=== PATIENT | female | born 1960 | race Caucasian/White ===

== ENCOUNTER 2018-01-23 16:13 | Emergency (ER) | payer OTHER, SELFPAY ==
[2018-01-23 16:14] VITALS: BP 184/80; PULSE 78; RESP 16; TEMP 36.7; O2SAT 98; BMI 43.5
--- NOTE | 2018-01-23 16:32 | ED.VISSUMM ---
- ER Visit Summary Date of Service: 01/23/18 Chief Complaint: Allergic reaction History of Present Illness: The patient is a 57 F who was stung by a bee to the back of her right arm on the . The area is red, warm, and continuing to expand. She took a single dose of Zyrtec last night. Physical Examination: Vital signs significant for blood pressure 184/80, otherwise normal. Patient sitting upright in bed no acute distress. Right upper extremity examination is significant for an area of erythema and warmth measuring 16 x 20 cm of the posterior right upper extremity. She has full range of motion of her arm. I do not see evidence of stinger still located in the skin. Test Results: [] Emergency Department Course and Treatment: My suspicion is the patient has a secondary bacterial skin infection from the sting. Area of erythema is outlined with a surgical marker. She is to continue Zyrtec and will be given a topical corticosteroid cream. She will also be started on Keflex. Treatment Plan: [] Disposition: Discharge Impression: Localized allergic reaction to bee sting with secondary skin infection This note was generated with [employer] dictation software. It may contain incorrect words, spelling, and punctuation that were not noted in review of the chart prior to signing ED Disposition - Plan for ED Patient: Chief Complaint: Allergic Reaction Referrals: Williams Pierson DO [Primary Care Provider] -
--- NOTE | 2018-01-23 16:34 | ED.DEP ---
ED Disposition - Plan for ED Patient: Disposition: Home or Assisted Living Chief Complaint: Allergic Reaction Instructions: ED Bite Sting Insect Local Allergic React, ED Infec Skin Cellulitis Prescriptions: Cephalexin [Keflex] 500 mg PO Q6 #40 capsule Referrals: Williams Pierson DO [Primary Care Provider] - 1 Week if not improving
[2018-01-23] MEDS: Hydrocortisone 2.5% Crm 1 APPLIC TOPICAL (16:40)
[2018-01-23] MEDS: Cephalexin 250 MG Capsule 500 MG PO (16:40)
== END 2018-01-23 16:48 | disposition home or self-care (01) ==
LOC: ED 16:45
PROVIDERS: Emergency Provider Emergency Medicine; Family Provider Preventive Medicine Occupational Medicine; PCP Preventive Medicine Occupational Medicine
DX: T63.441A Toxic effect of venom of bees, accidental (unintentional), initial encounter (principal); R21 Rash and other nonspecific skin eruption; Y92.9 Unspecified place or not applicable; K21.9 Gastro-esophageal reflux disease without esophagitis; I10 Essential (primary) hypertension; Z79.899 Other long term (current) drug therapy
CPT/HCPCS: 99283

== ENCOUNTER → 2018-06-21 15:42 | Outpatient (CLI) | payer OTHER, SELFPAY | PROVIDERS: Family Provider Preventive Medicine Occupational Medicine; PCP Preventive Medicine Occupational Medicine; Referring Provider Otolaryngology Otolaryngology/Facial Plastic Surgery; Visit Provider Otolaryngology Otolaryngology/Facial Plastic Surgery | DX: J32.9 Chronic sinusitis, unspecified (principal) | CPT/HCPCS: 87070; 87205 ==

== ENCOUNTER → 2018-07-05 12:46 | Outpatient (CLI) | payer OTHER, SELFPAY ==
--- NOTE | 2018-07-05 12:52 | CT_ITS ---
STUDY: CT FACIAL BONES WITHOUT CONTRAST REASON FOR EXAM: Female, 57 years old. Sinusitis RADIATION DOSAGE (If Supplied By Facility): CTDIvol = ( 33.06 ) mGy, DLP = ( 856.74 ) mGycm TECHNIQUE: The patient was scanned in a multi detector CT scanner. Sagittal and coronal images were reconstructed. Individualized dose optimization techniques were used for this CT. COMPARISON: None. FINDINGS: No evidence of acute or chronic paranasal sinusitis. The right frontal sinus is nonpneumatized. The ostiomeatal complexes are normal. No misti bullosa. No nasal septal deviation. No acute osseous abnormality. Visualized soft tissues are intact. CT/Sinus/Facial Bone IMPRESSION: No evidence of acute or chronic paranasal sinusitis. Electronically Signed: Dae Reno MD at 8:19 EDT Tel , Service support ,
== END ==
PROVIDERS: Family Provider Preventive Medicine Occupational Medicine; PCP Preventive Medicine Occupational Medicine; Referring Provider Otolaryngology Otolaryngology/Facial Plastic Surgery; Visit Provider Otolaryngology Otolaryngology/Facial Plastic Surgery
DX: J32.9 Chronic sinusitis, unspecified (principal)
CPT/HCPCS: 70486

== ENCOUNTER 2020-10-01 18:49 | Inpatient (IN) | payer OTHER, SELFPAY ==
[2020-09-27 10:51] VITALS: BMI 43.0
[2020-10-01] VITALS (7 sets, daily range): BP systolic 152–193; BP diastolic 72–100; PULSE 79–89; RESP 17–22; TEMP 36.8–38.3; O2SAT 85–94; BMI 41.9; BMI 42.8
--- NOTE | 2020-10-01 19:39 | EKG12_ITS ---
Test Reason : N/V Blood Pressure : / mmHG Vent. Rate : 082 BPM Atrial Rate : 082 BPM P-R Int : 194 ms QRS Dur : 078 ms QT Int : 350 ms P-R-T Axes : 024 -41 033 degrees QTc Int : 408 ms Normal sinus rhythm Left axis deviation Moderate voltage criteria for LVH, may be normal variant Abnormal ECG Confirmed by GEN SNYDER, HUMBERTO ([id number]), editor greeting card AZUCENA KIM ([id number]) on 10/04/2020 8:26:17 AM Referred By: DALY Confirmed By:HUMBERTO BLEVINS MD
--- NOTE | 2020-10-01 19:40 | RAD_ITS ---
STUDY: X-RAY CHEST REASON FOR EXAM: Female, 60 years old. covid TECHNIQUE: Single frontal view of the chest. COMPARISON: None. FINDINGS: Cardiac silhouette unremarkable. Pulmonary vascularity unremarkable. Aorta unremarkable. Right suprahilar opacity and prominent interstitial markings diffusely. No pleural effusions. Upper abdomen unremarkable. Osseous structures intact. No pneumothorax. RAD/Chest 1 View (Portable) IMPRESSION: Multifocal opacities may be consistent with Covid pneumonia. Electronically Signed: Luis Felipe Huitron MD at 21:05 EDT Tel , Service support ,
[2020-10-01] MEDS: Ondansetron 4 MG/2 ML Vial IV (19:50)
[2020-10-01] MEDS: 0.9% Normal Saline 1,000 ML 1000 ML IV (19:50)
--- NOTE | 2020-10-01 19:59 | EDS_ITS ---
HPI History of Present Illness Chief Complaint: Nausea/Vomiting Informant: patient and spouse/S.O. Narrative Narrative: 60-year-old female presents out of concerns for dehydration. Patient tested positive for COVID-19 last Wednesday and her symptoms began on last Wed. States her father recently passed from Covid from a pulmonary embolism. She notes that she has been experiencing some sore throat rhinorrhea cough mild shortness of breath loose stools and headache. She notes a fever up to 104. She states she has been taking more than what she is used to of Tylenol and anti-inflammatories. This is caused her stomach to be upset. She states that she is panicking because she is worried she is going to of a blood clot like her father. [facility] Medical History Hypertension Home Medications Cetirizine Hcl [Zyrtec] 10 mg PO PRN PRN 04/30/15 [History Last Taken Unknown] ascorbic acid (vitamin C) [Vitamin C] 500 mg PO DAILY 04/30/15 [History Last Taken Unknown] calcium carbonate-vitamin D3 [Caltrate with Vitamin D3] 1 tab PO DAILY@0800 04/30/15 [History Last Taken Unknown] esomeprazole magnesium [Nexium] 40 mg PO DAILY 04/30/15 [History Last Taken 05/13/15 08:00] multivitamin [Daily Multiple] 1 ea PO DAILY 04/30/15 [History Last Taken Unknown] vitamin B complex-folic acid [Super B Maxi Complex] 0.4 mg PO DAILY 04/30/15 [History Last Taken Unknown] ascorbic acid 100 mg-elderberry fruit 50 mg chewable tablet tab PO 09/27/20 [History Last Taken Unknown] calcium carb 300 mg-D3 800 unit-mag ox 25 mg-messenger copy 0.5 mg-edelmira-Zn tablet 1 tab PO DAILY 09/27/20 [History Last Taken Unknown] citalopram 10 mg tablet 10 mg PO DAILY 09/27/20 [History Last Taken Unknown] losartan 25 mg tablet 25 mg PO DAILY 09/27/20 [History Last Taken Unknown] elderberry fruit [Elderberry] 200 mg PO DAILY 10/01/20 [History Last Taken Unknown] Allergy/AdvReac Type Severity Reaction Status Date / Time hydromorphone [From Dilaudid] AdvReac Vomiting Verified 10/01/20 18:55 Social History (Updated 10/01/20 @ 20:[address] Arian Lara, DO) Smoking Status: Never smoker substance use type: does not use ROS ROS ED Constitutional Constitutional ED: Reports chills, fever(s) and sweats; Denies weight loss Eyes Eyes: Denies change in vision or diplopia ENT ENT ED: Reports rhinorrhea and sore throat; Denies ear pain Cardiovascular Cardiovascular: Denies chest pain, orthopnea, palpitations or racing heartbeat Respiratory/Chest Respiratory/Chest: Reports cough, dyspnea and dyspnea on exertion; Denies orthopnea or sputum Gastrointestinal Gastrointestinal: Reports nausea and vomiting; Denies abdominal pain or diarrhea Genitourinary Genitourinary ED: Denies dysuria, hematuria or urinary frequency Musculoskeletal Musculoskeletal: Reports myalgias; Denies arthralgias Integumentary Denies abscess or rash Neurologic Neurologic: Reports headache(s) and weakness Psychiatric Psychiatric: Reports anxiety; Denies depression, suicidal ideation or suicidal thoughts Endocrine Endocrinology: Denies polydipsia, polyphagia or polyuria Allergic/Immunologic Allergic/Immunologic ED: Denies mouth swelling, tongue swelling or urticaria EXAM Physical Exam Const Vital Signs: 10/01/20 18:50 10/01/20 20:28 10/01/20 22:00 Temperature 98.3 F Temperature Source Temporal Pulse Rate 89 81 87 Respiratory Rate 17 18 17 Blood Pressure 193/100 H 159/72 H 152/72 H Blood Pressure Mean 131 101 98 Pulse Ox 93 90 91 Oxygen Delivery Method Room Air Room Air Room Air Positive well nourished and well developed General Appearance ED: well developed HEENT Reports normocephalic, head/scalp atraumatic and moist mucous membranes Eyes PERRL and EOMs intact bilaterally Neck no lymphadenopathy, supple and no JVD Resp normal respiratory effort and clear to auscultation bilaterally Cardio regular rate, regular rhythm and no murmurs GI normal to inspection, nondistended, normoactive bowel sounds and non-tender Palpation: soft Back/Spine no CVA tenderness and normal ROM Extremity normal to inspection General Extremety ED: Negative for edema General Extremity: Negative for edema Neuro oriented x3 and CN's II-XII intact bilaterally Sensorium / Orientation: alert Motor Exam: strength 5/5 throughout Psych Mood & Affect: anxious and tearful; Negative for depressed Skin no rashes or lesions noted and no wounds MDM MDM MDM Narrative Medical decision making narrative: White count 6.8. D-dimer slightly elevated so a CTA of the chest was ordered which does not demonstrate any pulmonary embolism. Noted multifocal patchy infiltrates consistent with her diagnosis of Covid. There was right upper lobe consolidation read by radiology. Interpretation of the chest x-ray is Diffuse patchy infiltrates. Upon the patient resting in the emergency department while awake she would occasionally drop her saturations to 86% with good waveform. With ambulation she drops from 91-85 readily. She was placed on supplemental oxygen and given a dose of Decadron. Plan will be admission into the hospital. Lab Data Attestation: I reviewed the patient's lab results. Labs: Laboratory Results - last 24 hr 10/01/20 10/01/20 10/01/20 19:55 19:55 19:55 WBC 6.8 RBC 4.72 Hgb 13.7 Hct 41.4 MCV 87.7 MCH 29.0 MCHC 33.1 RDW Std Deviation 42.9 RDW Coeff of Saida 13.2 Plt Count 160 MPV 11.4 Immature Gran % (Auto) 0.300 Neut % (Auto) 78.3 H Lymph % (Auto) 14.9 L [place] % (Auto) 6.2 Eos % (Auto) 0.0 Baso % (Auto) 0.3 Absolute Neuts (auto) 5.3 Absolute Lymphs (auto) 1.01 Nucleated RBC % 0 D-Dimer Quant (PE/DVT) 0.79 H* Sodium 135 L Potassium 4.0 Chloride 102 Carbon Dioxide 29.0 Anion Gap 4 L BUN 15 Creatinine 0.96 Estim Creat Clear Calc 58.34 Est GFR (MDRD) Af Amer 77 Est GFR (MDRD) Non-Af 63 BUN/Creatinine Ratio 15.7 Glucose 114 H Calcium 8.4 L Total Bilirubin 0.30 AST 34 ALT 39 Alkaline Phosphatase 79 Troponin I < 0.015 Total Protein 7.1 Albumin 3.1 L Globulin 4.0 Albumin/Globulin Ratio 0.8 L Radiography Diagnostic Testing: Radiology Impression Chest X-Ray 10/01/20 19:40 IMPRESSION: Multifocal opacities may be consistent with Covid pneumonia. Electronically Signed: Luis Felipe Huitron MD at 21:05 EDT Tel , Service support , Chest CTA 10/01/20 20:49 IMPRESSION: No demonstrated pulmonary embolism or arterial dissection. Patchy infiltrates bilaterally. Right upper lobe consolidation. Electronically Signed: Tank Gallagher DO at 22:27 EDT Tel [phone], Service support , EKG Initial EKG: Attestation: I personally reviewed and interpreted this EKG as follows: Comments: EKG demonstrates a normal sinus rhythm at a rate of 82. No concerning features of ACS or ectopy noted. Prior EKG tracings: available for review Prior: Unchanged Discharge Plan Triage Chief Complaint: Nausea/Vomiting ED Provider: Arian Lara Dx/Rx/DC Orders Clinical Impression: COVID-19, Hypoxemia, Anxiety Prescriptions: No Action losartan 25 mg tablet 25 mg PO DAILY RF: 0 citalopram 10 mg tablet 10 mg PO DAILY RF: 0 Caltrate + D3 Plus Minerals 300 mg-800 unit -25 mg-0.5 mg tablet 1 tab PO DAILY RF: 0 ascorbic acid-elderberry fruit [Airborne (elderberry)] 100-50 mg tablet,chewable PO RF: 0 esomeprazole magnesium [Nexium] 20 MG capsule 40 mg PO DAILY RF: 0 Cetirizine Hcl [Zyrtec] 10 MG tablet 10 mg PO PRN PRN (Reason: Allergies) RF: 0 multivitamin [Daily Multiple] 1 EACH tablet 1 ea PO DAILY RF: 0 ascorbic acid (vitamin C) [Vitamin C] 500 MG tablet 500 mg PO DAILY RF: 0 vitamin B complex-folic acid [Super B Maxi Complex] 0.4 MG tablet 0.4 mg PO DAILY RF: 0 calcium carbonate-vitamin D3 [Caltrate with Vitamin D3] 1 TAB tablet 1 tab PO DAILY@0800 RF: 0 Elderberry 200 mg Capsule 200 mg PO DAILY RF: 0 Primary Care Provider: Williams Pierson Referrals: Williams Pierson DO [Primary Care Provider] - Disposition Disposition: Acute Care [facility]
[2020-10-01 20:05] LABS: Absolute Lymphocyte Count 1.01 X10^3/uL (0.83-4.51); Absolute Neutrophil Count 5.3 X10^3/uL (2.0-7.7); Basophil# 0.02 X10^3/uL; Basophil% 0.3 % (0-1); Hematocrit 41.4 % (37-47); Hemoglobin 13.7 g/dL (12.0-15.0); Lymphocyte # 1.01 X10^3/ul (0.83-4.51); Lymphocyte % 14.9 % (19-41); Mean Corp Hgb Conc 33.1 g/dL (32-36); Mean Corpuscular Volume 87.7 fL (81-99); Mean Platelet Vol. 11.4 fl (6.2-12.0); Monocyte# 0.42 X10^3/uL; Monocyte% 6.2 % (0-10); NRBC Flagged by Analyzer 0 % (0-5); Neutrophil % 78.3 % (47-70); Platelet Count 160 K/mm3 (150-450); RBC Distribution Width CV 13.2 % (11.6-14.6); RBC Distribution Width SD 42.9 fl (35.1-43.9); Red Blood Count 4.72 M/mm3 (4.2-5.4); White Blood Count 6.8 K/mm3 (4.4-11.0)
[2020-10-01 20:26] LABS: ALB/GLOB Ratio 0.8 RATIO (0.9-2.4); AST(SGOT) 34 U/L (15-37); Alanine Aminotransfer ALT/SGPT 39 U/L (13-56); Albumin, Serum 3.1 g/dL (3.2-5.0); Alkaline Phosphatase 79 U/L (45-117); Anion Gap 4 (5-15); BUN 15 mg/dL (7-18); BUN/Creat Ratio 15.7 RATIO (10-20); Calcium,Total 8.4 mg/dL (8.5-10.1); Chloride 102 mmol/L (98-107); Creatinine, Serum 0.96 mg/dL (0.55-1.02); EST Glomerular Filtration Rate 63 mL/min (>60); Est Glom Filt Rate - Afr Amer 77 mL/min (>60); Estimated Creatinine Clearance 58.34 ml/min; Glucose 114 mg/dL (74-106); Protein, Total 7.1 g/dL (6.4-8.2); Sodium Level 135 mmol/L (136-145)
[2020-10-01] MEDS: LORazepam 2 MG/ML Syringe 1 MG IV (20:27)
[2020-10-01 20:28] LABS: D-Dimer Quantitative (DVT/PE) 0.79 FEU/ug/m (0.27-0.49)
--- NOTE | 2020-10-01 20:49 | CT_ITS ---
STUDY: CTA CHEST REASON FOR EXAM: Female, 60 years old. Pulmonary embolism RADIATION DOSAGE (If Supplied By Facility): CTDIvol = ( 11.47 ) mGy, DLP = ( 565.97 ) mGycm TECHNIQUE: The examination was performed with the intravenous administration of IV 100mL [id number]-[id number]. Post-processing of the angiographic images was performed, with multiplanar reformation and 3D reconstruction. Individualized dose optimization techniques were used for this CT. COMPARISON: None. FINDINGS: Normal enhancement of the main pulmonary artery and right and left pulmonary arteries. Normal enhancement of the bilateral peripheral pulmonary arteries. There is no demonstrated pulmonary embolism. Normal thoracic aorta and visualized great vessels. There is no demonstrated aortic dissection. Normal heart and pericardium. Normal mediastinum. Normal hilar regions. Normal visualized trachea and bronchi. The lungs are well expanded. Patchy infiltrates bilaterally. Right upper lobe consolidation. Normal pleura. Normal chest wall structures. Degenerative vertebral changes. Cholelithiasis. CT/CTA Chest W/WO Contrast IMPRESSION: No demonstrated pulmonary embolism or arterial dissection. Patchy infiltrates bilaterally. Right upper lobe consolidation. Electronically Signed: Tank Gallagher DO at 22:27 EDT Tel [phone], Service support ,
--- NOTE | 2020-10-01 22:32 | ED.RN ---
pt po on [id number] and wqalked the room several times drop to 85%. aware. 02 at 2lnc appilied
[2020-10-01] MEDS: dexAMETHasone 4 MG Tablet 6 MG PO (22:46)
--- NOTE | 2020-10-01 23:18 | PCM.HP.STD ---
Documented by User: Bridgette Benson NP-C 10/01/20 23:42 HPI - General General Date of Admission: 10/01/20 HPI Narrative YULISSA AUSTIN, is a 60 F who presents with worsening Covid symptoms. Patient states that she began to be symptomatic last Wednesday and was tested last Wednesday where she was positive for Covid. Patient reports fever of 104, sore throat, rhinorrhea, cough, mild shortness of breath, loose stools and headache. Patient states that she has been nauseous as well she feels due to the amount of Tylenol and anti-inflammatory she has been taking for her fever. Patient is extremely anxious and panicked due to the recent passing of her father from a pulmonary embolism as a result of COVID-19. Patient was offered and denied need for anxiety medication or sedative. [facility] Medical History Hypertension Home Medications Cetirizine Hcl [Zyrtec] 10 mg PO PRN PRN 04/30/15 [History Last Taken Unknown] ascorbic acid (vitamin C) [Vitamin C] 500 mg PO DAILY 04/30/15 [History Last Taken Unknown] calcium carbonate-vitamin D3 [Caltrate with Vitamin D3] 1 tab PO DAILY@0800 04/30/15 [History Last Taken Unknown] esomeprazole magnesium [Nexium] 40 mg PO DAILY 04/30/15 [History Last Taken 05/13/15 08:00] multivitamin [Daily Multiple] 1 ea PO DAILY 04/30/15 [History Last Taken Unknown] vitamin B complex-folic acid [Super B Maxi Complex] 0.4 mg PO DAILY 04/30/15 [History Last Taken Unknown] ascorbic acid 100 mg-elderberry fruit 50 mg chewable tablet tab PO 09/27/20 [History Last Taken Unknown] calcium carb 300 mg-D3 800 unit-mag ox 25 mg-endoscopy registered nurse 0.5 mg-edelmira-Zn tablet 1 tab PO DAILY 09/27/20 [History Last Taken Unknown] citalopram 10 mg tablet 10 mg PO DAILY 09/27/20 [History Last Taken Unknown] losartan 25 mg tablet 25 mg PO DAILY 09/27/20 [History Last Taken Unknown] elderberry fruit [Elderberry] 200 mg PO DAILY 10/01/20 [History Last Taken Unknown] Allergy/AdvReac Type Severity Reaction Status Date / Time hydromorphone [From Dilaudid] AdvReac Vomiting Verified 10/01/20 18:55 Social History Smoking Status: Never smoker substance use type: does not use ROS Constitutional Constitutional: Reports chills, fatigue, fever(s) and headache(s); Denies anorexia ENT HEENT: Reports rhinorrhea and sore throat Cardiovascular Cardiovascular: Denies chest pain, edema or palpitations Respiratory/Chest Respiratory/Chest: Reports cough, shortness of breath at rest and shortness of breath with exertion Gastrointestinal Gastrointestinal: Reports diarrhea, nausea and vomiting; Denies abdominal pain or constipation Genitourinary Genitourinary: Denies dysuria Musculoskeletal Musculoskeletal: Reports joint stiffness; Denies back pain, extremity pain or joint pain Integumentary Integumentary: Denies dry skin, lesions, pruritus, rash or wounds Neurologic Neurologic: Denies abnormal gait, abnormal speech, confusion or dizziness Psychiatric Psychiatric: Reports anxiety; Denies depression Endocrine Endocrinology: Denies change in body appearance Hematologic/Lymphatic Hematologic/Lymphatic: Denies easy bleeding or easy bruising Vital Signs Vital Signs Vital Signs: 10/01/20 18:50 10/01/20 20:28 10/01/20 22:00 Temperature 98.3 F Temperature Source Temporal Pulse Rate 89 81 87 Respiratory Rate 17 18 17 Blood Pressure 193/100 H 159/72 H 152/72 H Blood Pressure Mean 131 101 98 Pulse Ox 93 90 91 Oxygen Delivery Method Room Air Room Air Room Air Oxygen Flow Rate (L/min) 10/01/20 22:32 10/01/20 22:49 10/01/20 22:54 Temperature 98.4 F Temperature Source Temporal Pulse Rate 83 88 Respiratory Rate 21 H 22 H Blood Pressure 167/72 H 161/81 H Blood Pressure Mean 103 107 Pulse Ox 85 94 94 Oxygen Delivery Method Room Air Nasal Cannula Nasal Cannula Oxygen Flow Rate (L/min) 2 2 Weight Weight: 260 lb Body Mass Index (BMI) 41.9 Physical Exam Const alert and oriented x3 General Appearance: cooperative HEENT normocephalic and head/scalp atraumatic Eyes PERRL and EOMs intact bilaterally Neck supple, no JVD and thyroid normal General: trachea midline Lymph Lymphatic: no lymphadenopathy noted Resp normal respiratory effort Effort and Inspection: able to speak in complete sentences and tachypneic Auscultation: diminished lung sounds diffuse Cardio regular rate, regular rhythm, S1 normal heart sound and S2 normal heart sound GI normal to inspection, nondistended, normoactive bowel sounds, soft to palpation and non-tender Extremity normal capillary refill and no clubbing, cyanosis or edema General Extremity: no tenderness to palpation of joints or extremities Skin General Skin Exam: no breakdown and turgor normal Lesions: no lesions Rashes: no rashes Neuro CN's II-XII intact bilaterally Psych mental status grossly normal and cooperative Mood & Affect: anxious Results Lab / Micro Data Result Diagrams: 10/01/20 19:55 10/01/20 19:55 Labs: Laboratory Results - last 24 hr 10/01/20 10/01/20 10/01/20 19:55 19:55 19:55 WBC 6.8 RBC 4.72 Hgb 13.7 Hct 41.4 MCV 87.7 MCH 29.0 MCHC 33.1 RDW Std Deviation 42.9 RDW Coeff of Saida 13.2 Plt Count 160 MPV 11.4 Immature Gran % (Auto) 0.300 Neut % (Auto) 78.3 H Lymph % (Auto) 14.9 L [place] % (Auto) 6.2 Eos % (Auto) 0.0 Baso % (Auto) 0.3 Absolute Neuts (auto) 5.3 Absolute Lymphs (auto) 1.01 Nucleated RBC % 0 D-Dimer Quant (PE/DVT) 0.79 H* Sodium 135 L Potassium 4.0 Chloride 102 Carbon Dioxide 29.0 Anion Gap 4 L BUN 15 Creatinine 0.96 Estim Creat Clear Calc 58.34 Est GFR (MDRD) Af Amer 77 Est GFR (MDRD) Non-Af 63 BUN/Creatinine Ratio 15.7 Glucose 114 H Calcium 8.4 L Total Bilirubin 0.30 AST 34 ALT 39 Alkaline Phosphatase 79 Troponin I < 0.015 Total Protein 7.1 Albumin 3.1 L Globulin 4.0 Albumin/Globulin Ratio 0.8 L Radiology Impression Chest X-Ray 10/01/20 19:40 IMPRESSION: Multifocal opacities may be consistent with Covid pneumonia. Electronically Signed: Luis Felipe Huitron MD at 21:05 EDT Tel , Service support , Chest CTA 10/01/20 20:49 IMPRESSION: No demonstrated pulmonary embolism or arterial dissection. Patchy infiltrates bilaterally. Right upper lobe consolidation. Electronically Signed: Tank Gallagher DO at 22:27 EDT Tel [phone], Service support , Assessment & Plan Assessment/Plan (1) Pneumonia due to COVID-19 virus: (2) Hypoxemia: (3) Anxiety: PLAN: 1. Pneumonia due to COVID-19 virus -Admit to COVID-19 cohort unit, [facility] telemetry status -Covid isolation precautions ordered -Oxygen per protocol -Will initiate Remdesivir due to resting pulse ox 86%, -Became symptomatic September 25, tested positive at now clinic September 27 -As needed albuterol treatments ordered -Decadron 6 mg p.o. daily -CBC and CMP daily, trend LFTs while on remdesivir -Encourage incentive spirometry -Clear liquid diet due to GI upset -PT and OT to eval and treat 2. Hypoxemia -See #1 3. Anxiety -Increase due to father's recent passing from complications of COVID-19 -Patient refusing any sedation medications or additional anxiety medications at this time however patient did agree to melatonin to help her sleep -Melatonin 6 mg nightly ordered -We will continue citalopram 4. Hypertension -Vital signs per protocol trend BP and heart rate -Patient slightly hypertensive in ER however I believe this is mostly related to her anxiety 5. GERD -Continue omeprazole DVT prophylaxis-subcu Lovenox and SCDs This patient was seen by Bridgette Benson, PULL WORKER-C under the supervision of Dr. Esposito. Documented by User: Dr. Torey Esposito MD 10/01/20 23:47 HPI - General General Date of Admission: 10/01/20 [facility] Medical History Hypertension Home Medications Cetirizine Hcl [Zyrtec] 10 mg PO PRN PRN 04/30/15 [History Last Taken Unknown] ascorbic acid (vitamin C) [Vitamin C] 500 mg PO DAILY 04/30/15 [History Last Taken Unknown] calcium carbonate-vitamin D3 [Caltrate with Vitamin D3] 1 tab PO DAILY@0800 04/30/15 [History Last Taken Unknown] esomeprazole magnesium [Nexium] 40 mg PO DAILY 04/30/15 [History Last Taken 05/13/15 08:00] multivitamin [Daily Multiple] 1 ea PO DAILY 04/30/15 [History Last Taken Unknown] vitamin B complex-folic acid [Super B Maxi Complex] 0.4 mg PO DAILY 04/30/15 [History Last Taken Unknown] ascorbic acid 100 mg-elderberry fruit 50 mg chewable tablet tab PO 09/27/20 [History Last Taken Unknown] calcium carb 300 mg-D3 800 unit-mag ox 25 mg-endoscopy registered nurse 0.5 mg-edelmira-Zn tablet 1 tab PO DAILY 09/27/20 [History Last Taken Unknown] citalopram 10 mg tablet 10 mg PO DAILY 09/27/20 [History Last Taken Unknown] losartan 25 mg tablet 25 mg PO DAILY 09/27/20 [History Last Taken Unknown] elderberry fruit [Elderberry] 200 mg PO DAILY 10/01/20 [History Last Taken Unknown] Allergy/AdvReac Type Severity Reaction Status Date / Time hydromorphone [From Dilaudid] AdvReac Vomiting Verified 10/01/20 18:55 Social History Smoking Status: Never smoker substance use type: does not use Results Lab / Micro Data Result Diagrams: 10/01/20 19:55 10/01/20 19:55 Charges/Coding Addendum Addendum: Patient was seen and examined independently. I agree with assessment and plan by Bridgette Benson NP-C Patient is a 60-year-old female with a significant history of hypertension who presents to the emergency department with anxiety secondary to his father dying from a COVID-19 virus. Of note patient's father was at our hospital for COVID-19. He (patient's father) developed a DVT and PE and had to be transferred to outside hospital where he passed. Patient reports a Covid-like symptoms of sore throat; runny nose; cough occasionally productive of sputum; and shortness of breath. His symptoms started about a week ago. About 5 days ago he had a positive Covid test at the urgent care. On this presentation at the emergency department his oxygen saturation on room air was about 91% and with ambulation his oxygen saturation dropped to about 85%. Alert and oriented x3 Nontraumatic; normocephalic Lung with mild rales at left posterior Heart sounds S1-S2. No murmur, gallop or rubs. Abdomen bowel sounds present soft, nontender nondistended Extremity without edema cyanosis or clubbing. Acute hypoxemic respiratory insufficiency secondary to SARS- COV 2 Radiologist impression of chest x-ray: Multifocal opacity may be consistent with Covid pneumonia. Actual chest x-ray image was independently interpreted. I agree with radiologist interpretation. CTA chest showed no demonstrated pulmonary embolism or atrial dissection. Patchy infiltrates bilaterally. Right upper lobe consolidation. Will get procalcitonin to stratify for need for antibiotics. Please nasal cannula oxygen. Titrate oxygen to keep oxygen saturation more than 92%. Review of outpatient labs showed that patient had a positive Covid test on 09/27/2020. Review of emergency department labs showed GFR of more than 60 and estimated creatinine clearance of 58.34. Liver enzymes are normal. Started on remdesivir. Trend CMP. Tylenol as needed for fever. Covid induced coagulopathy. Noted to have elevated D-dimer. Lovenox for DVT prophylaxis ordered. Depression/anxiety Citalopram continued Counseled Melatonin for sleep. Hypertension Blood pressure is not within goal Losartan continued. Trend blood pressure and adjust blood pressure medications. DVT prophylaxis Subcutaneous Lovenox per Covid protocol Visit Charges Inpatient E&M: 59215 Init Hosp L3
[2020-10-02] VITALS (12 sets, daily range): BP systolic 132–147; BP diastolic 46–64; PULSE 62–76; RESP 13–19; TEMP 36.4–36.8; O2SAT 92–96
[2020-10-02] MEDS: 0.9% Saline Lock 10 ML Syringe IV ×3 (00:11→21:49)
[2020-10-02 00:24] LABS: Procalcitonin 0.21 ng/mL (0.00-0.09)
[2020-10-02 04:25] LABS: Absolute Lymphocyte Count 0.82 X10^3/uL (0.83-4.51); Absolute Neutrophil Count 4.4 X10^3/uL (2.0-7.7); Basophil# 0.01 X10^3/uL; Basophil% 0.2 % (0-1); Hematocrit 40.2 % (37-47); Hemoglobin 13.2 g/dL (12.0-15.0); Lymphocyte # 0.82 X10^3/ul (0.83-4.51); Lymphocyte % 15.1 % (19-41); Mean Corp Hgb Conc 32.8 g/dL (32-36); Mean Corpuscular Hgb 29.1 pg (27.0-32.0); Mean Corpuscular Volume 88.5 fL (81-99); Mean Platelet Vol. 11.1 fl (6.2-12.0); Monocyte# 0.15 X10^3/uL; Monocyte% 2.8 % (0-10); NRBC Flagged by Analyzer 0 % (0-5); Neutrophil # 4.42 X10^3/uL (2.7-7.7); Neutrophil % 81.5 % (47-70); Platelet Count 154 K/mm3 (150-450); RBC Distribution Width CV 13.5 % (11.6-14.6); RBC Distribution Width SD 43.9 fl (35.1-43.9); Red Blood Count 4.54 M/mm3 (4.2-5.4); White Blood Count 5.4 K/mm3 (4.4-11.0)
[2020-10-02 04:43] LABS: ALB/GLOB Ratio 0.7 RATIO (0.9-2.4); AST(SGOT) 36 U/L (15-37); Alanine Aminotransfer ALT/SGPT 39 U/L (13-56); Albumin, Serum 2.9 g/dL (3.2-5.0); Alkaline Phosphatase 77 U/L (45-117); Anion Gap 8 (5-15); BUN 13 mg/dL (7-18); BUN/Creat Ratio 13.7 RATIO (10-20); Chloride 103 mmol/L (98-107); Creatinine, Serum 0.95 mg/dL (0.55-1.02); EST Glomerular Filtration Rate 64 mL/min (>60); Est Glom Filt Rate - Afr Amer 77 mL/min (>60); Estimated Creatinine Clearance 58.95 ml/min; Globulin 4.2 g/dL (2.2-4.2); Glucose 147 mg/dL (74-106); Protein, Total 7.1 g/dL (6.4-8.2); Sodium Level 138 mmol/L (136-145)
[2020-10-02] MEDS: Ascorbic Acid 500 MG Tablet PO (08:24)
[2020-10-02] MEDS: Citalopram 10 MG Tablet PO (08:24)
[2020-10-02] MEDS: Pantoprazole Sodium 40 MG Tablet PO (08:24)
[2020-10-02] MEDS: Calcium Carb/Vitamin D 1 TABLET Tablet PO (08:24)
[2020-10-02] MEDS: Vitamin B Comp W-C Capsule 1 CAP PO (08:24)
[2020-10-02] MEDS: dexAMETHasone 4 MG Tablet 6 MG PO (08:25)
[2020-10-02] MEDS: Losartan Potassium 25 MG Tablet PO (08:25)
[2020-10-02] MEDS: Enoxaparin 40 MG/0.4 ML Syringe SC ×2 (08:25→21:49)
[2020-10-02] MEDS: Multivitamins,Therapeutic Tablet 1 TABLET PO (08:25)
--- NOTE | 2020-10-02 09:05 | CASEMGMT ---
PABLITO LOPEZ Assessment: Face to Face with pt for initial transition planning/care coordination assessment. PABLITO LOPEZ introduced self and role at [facility], pt voices understanding and consents to assessment. Pt is A/O x4 and answers all questions appropriately at this time. Pt lying in bed with O2 on in no distress. Care providers, pharmacy, and demographics verified/updated. Admitting Dx: COVID 19 PNA PCP: [facility] Specialists: Pt denies having any specialists. Preferred Pharmacy: [facility] Insurance: [employer] Prescription Benefit: yes LW/HPOA: Pt denies having LW/DPOA. She states she was working on this when all of this hit. LNO[place]: [place], Living Arrangements: Pt lives with in a single story house with no steps to enter. Pt is independent in ADL's and denies concerns at home. Transportation: Pt drives self and denies concerns with transportation. DME/HHC/SNF: Pt has grab bars in her bathroom, but no other DME. Pt denies history of SNF or HHC. Discussed with patient the possibility of needing O2 at home. Patient was provided a list of HHC providers including quality and resource use data and consistent with the patient?s preferred geographic region, medical needs, and insurance network. The patient?s preferred provider is [facility]. Patient states she does have someone who can bring her groceries during her quarantine period. She states she is able to quarantine. Her and multiple members of her family have had COVID. Recently her father passed from complications of COVID. Pt states no concerns with going home at time of dc. Pt states no further concerns/needs. CM to follow. Advised pt to ask CM if any further question/concerns/needs arise, voices understanding. Pt Goal: Home Plan: Home, following O2 needs.
--- NOTE | 2020-10-02 11:26 | CASEMGMT ---
SW called pt in room to check in w/her, as she recently lost her father. Support offered. Pt states is doing okay right now. SW explained SW here and available to talk with her should she need support. Pt states understanding. SAMANTA Arguello
--- NOTE | 2020-10-02 12:18 | PCM.PN.HOSP ---
Subjective Subjective Feels little bit better today, breathing little bit easier. Her IV did manage to fall out on its own during her remdesivir infusion Objective Data Objective Data Vital Signs: Vital Signs Temp Pulse Resp BP Pulse Ox 97.5 F L 63 17 136/62 H 96 10/02/20 08:34 10/02/20 08:34 10/02/20 08:34 10/02/20 08:34 10/02/20 08:34 Oxygen Flow Rate (L/min) 2 Oxygen Delivery Method Nasal Cannula Weight: 265 lb 6.985 oz Body Mass Index (BMI) 42.8 Intake & Output: Intake and Output for Last 24 Hours 10/01/20 10/02/20 10/03/20 03:59 03:59 03:59 Intake Total 1300 / 1300 431 / 431 Balance 1300 / 1300 431 / 431 Lab / Micro Data Result Diagrams: 10/02/20 04:10 10/02/20 04:10 Labs: Laboratory Results - last 24 hr 10/01/20 10/01/20 10/01/20 19:55 19:55 19:55 WBC 6.8 RBC 4.72 Hgb 13.7 Hct 41.4 MCV 87.7 MCH 29.0 MCHC 33.1 RDW Std Deviation 42.9 RDW Coeff of Saida 13.2 Plt Count 160 MPV 11.4 Immature Gran % (Auto) 0.300 Neut % (Auto) 78.3 H Lymph % (Auto) 14.9 L [place] % (Auto) 6.2 Eos % (Auto) 0.0 Baso % (Auto) 0.3 Absolute Neuts (auto) 5.3 Absolute Lymphs (auto) 1.01 Nucleated RBC % 0 D-Dimer Quant (PE/DVT) 0.79 H* Sodium 135 L Potassium 4.0 Chloride 102 Carbon Dioxide 29.0 Anion Gap 4 L BUN 15 Creatinine 0.96 Estim Creat Clear Calc 58.34 Est GFR (MDRD) Af Amer 77 Est GFR (MDRD) Non-Af 63 BUN/Creatinine Ratio 15.7 Glucose 114 H Calcium 8.4 L Total Bilirubin 0.30 AST 34 ALT 39 Alkaline Phosphatase 79 Troponin I < 0.015 Total Protein 7.1 Albumin 3.1 L Globulin 4.0 Albumin/Globulin Ratio 0.8 L Procalcitonin 10/01/20 10/02/20 10/02/20 23:33 04:10 04:10 WBC 5.4 RBC 4.54 Hgb 13.2 Hct 40.2 MCV 88.5 MCH 29.1 MCHC 32.8 RDW Std Deviation 43.9 RDW Coeff of Saida 13.5 Plt Count 154 MPV 11.1 Immature Gran % (Auto) 0.400 Neut % (Auto) 81.5 H Lymph % (Auto) 15.1 L [place] % (Auto) 2.8 Eos % (Auto) 0.0 Baso % (Auto) 0.2 Absolute Neuts (auto) 4.4 Absolute Lymphs (auto) 0.82 L Nucleated RBC % 0 D-Dimer Quant (PE/DVT) Sodium 138 Potassium 4.0 Chloride 103 Carbon Dioxide 27.0 Anion Gap 8 BUN 13 Creatinine 0.95 Estim Creat Clear Calc 58.95 Est GFR (MDRD) Af Amer 77 Est GFR (MDRD) Non-Af 64 BUN/Creatinine Ratio 13.7 Glucose 147 H Calcium 8.0 L Total Bilirubin 0.20 AST 36 ALT 39 Alkaline Phosphatase 77 Troponin I Total Protein 7.1 Albumin 2.9 L Globulin 4.2 Albumin/Globulin Ratio 0.7 L Procalcitonin 0.21 H Micro: Microbiology 10/02/20 08:10 Urine, Random Legionella Antigen - Final 10/02/20 08:10 Urine, Random Streptococcus pneumoniae Antigen (M - Final Radiography Diagnostic Testing: Radiology Impression Chest X-Ray 10/01/20 19:40 IMPRESSION: Multifocal opacities may be consistent with Covid pneumonia. Electronically Signed: Luis Felipe Huitron MD at 21:05 EDT Tel , Service support , Chest CTA 10/01/20 20:49 IMPRESSION: No demonstrated pulmonary embolism or arterial dissection. Patchy infiltrates bilaterally. Right upper lobe consolidation. Electronically Signed: Tank Gallagher DO at 22:27 EDT Tel [phone], Service support , Physical Exam Const alert, oriented x3 and no apparent distress HEENT moist oral mucous membranes Head and Scalp: normocephalic Eyes PERRL, EOMs intact bilaterally and conjunctivae normal Neck supple and no JVD Resp normal respiratory effort, no retractions, no use of accessory muscles and clear to auscultation bilaterally Auscultation: Negative for crackles, rales, rhonchi or wheezes Cardio regular rate, regular rhythm, S1 normal heart sound, S2 normal heart sound and no murmurs GI soft to palpation, non-tender and non-distended; Negative for hepatosplenomegaly Extremity no clubbing, cyanosis or edema Skin no rashes or lesions noted Neuro no focal motor deficits and no sensory deficits noted Psych affect normal Assessment & Plan Assessment/Plan (1) Pneumonia due to COVID-19 virus: (2) Hypoxemia: (3) Anxiety: PLAN: 1. Acute hypoxic respiratory failure secondary to pneumonia due to COVID-19 virus -Admit to COVID-19 cohort unit, [facility] telemetry status -Covid isolation precautions ordered -Oxygen per protocol -Became symptomatic September 25, tested positive at now clinic September 27 -Continue with Decadron and remdesivir, a few members in her family had Covid and her father recently from a PE as a complication to Covid. -She did not obtain the Covid vaccine because she does not trust it 2. Anxiety -Stable -Continue with her home anxiety medications 3. HTN -Blood pressure is stable -We will continue with losartan 4. GERD -Stable -Continue omeprazole DVT: Lovenox Charges/Coding Visit Charges Inpatient E&M: 50406 Subs Hosp L2
--- NOTE | 2020-10-02 13:57 | CHAPLAIN ---
Type of Pastoral Visit ___ Initial Visit ___ Follow-up Visit ___ On-call Visit ___ General Patient Visit ___ Spiritual Assessment ___ Family Conference ___ Bereavement ___ Rapid Response ___ Code Blue _x__ Other (describe below) Pastoral Care Referral From ___ Patient ___ Family _x__ Nurse ___ Physician ___ Coverage Specialist ___ Taxi Proprietor ___ Other (describe below) Sacrament/Intervention _x__ Active listening ___ Anointing ___ Orthodox _x__ Bereavement ___ Communion ___ Sowmya exploration ___ ___ Life review _x__ Prayer ___ Reconciliation ___ Sacrament of Sick ___ Supportive presence ___ Wedding ___ Other (describe below) Pastoral Comments RN recommended visit which was a phone call into isolation room; pt's father on Wednesday; offer of support and grief care; patient is able to talk freely on the phone and states she is doing pretty well; pt acknowledges of parent and that she is handling it ok; pt is member of local hinduism and has good sowmya support; prayer welcomed
[2020-10-03] VITALS (14 sets, daily range): BP systolic 138–149; BP diastolic 44–77; PULSE 52–78; RESP 15–18; TEMP 36.7–36.8; O2SAT 87–95
[2020-10-03 05:24] LABS: Absolute Lymphocyte Count 1.06 X10^3/uL (0.83-4.51); Basophil# 0.01 X10^3/uL; Basophil% 0.1 % (0-1); Hematocrit 40.4 % (37-47); Hemoglobin 13.3 g/dL (12.0-15.0); Lymphocyte # 1.06 X10^3/ul (0.83-4.51); Lymphocyte % 10.9 % (19-41); Mean Corp Hgb Conc 32.9 g/dL (32-36); Mean Corpuscular Hgb 28.8 pg (27.0-32.0); Mean Corpuscular Volume 87.4 fL (81-99); Mean Platelet Vol. 11.5 fl (6.2-12.0); Monocyte# 0.58 X10^3/uL; NRBC Flagged by Analyzer 0 % (0-5); Neutrophil # 7.99 X10^3/uL (2.7-7.7); Neutrophil % 82.5 % (47-70); Platelet Count 195 K/mm3 (150-450); RBC Distribution Width CV 13.2 % (11.6-14.6); RBC Distribution Width SD 42.2 fl (35.1-43.9); Red Blood Count 4.62 M/mm3 (4.2-5.4); White Blood Count 9.7 K/mm3 (4.4-11.0)
[2020-10-03 05:40] LABS: ALB/GLOB Ratio 0.7 RATIO (0.9-2.4); AST(SGOT) 28 U/L (15-37); Alanine Aminotransfer ALT/SGPT 42 U/L (13-56); Albumin, Serum 2.7 g/dL (3.2-5.0); Alkaline Phosphatase 72 U/L (45-117); Anion Gap 5 (5-15); BUN 19 mg/dL (7-18); BUN/Creat Ratio 21.6 RATIO (10-20); Calcium,Total 8.5 mg/dL (8.5-10.1); Chloride 105 mmol/L (98-107); Creatinine, Serum 0.88 mg/dL (0.55-1.02); EST Glomerular Filtration Rate 70 mL/min (>60); Est Glom Filt Rate - Afr Amer 84 mL/min (>60); Estimated Creatinine Clearance 63.64 ml/min; Glucose 153 mg/dL (74-106); Potassium 4.1 mmol/L (3.5-5.1); Protein, Total 6.7 g/dL (6.4-8.2); Sodium Level 140 mmol/L (136-145)
[2020-10-03] MEDS: Multivitamins,Therapeutic Tablet 1 TABLET PO (08:21)
[2020-10-03] MEDS: Losartan Potassium 25 MG Tablet PO (08:22)
[2020-10-03] MEDS: dexAMETHasone 4 MG Tablet 6 MG PO (08:22)
[2020-10-03] MEDS: Pantoprazole Sodium 40 MG Tablet PO (08:22)
[2020-10-03] MEDS: Citalopram 10 MG Tablet PO (08:22)
[2020-10-03] MEDS: Ascorbic Acid 500 MG Tablet PO (08:22)
[2020-10-03] MEDS: Calcium Carb/Vitamin D 1 TABLET Tablet PO (08:22)
[2020-10-03] MEDS: Enoxaparin 40 MG/0.4 ML Syringe SC ×2 (08:22→20:12)
[2020-10-03] MEDS: Vitamin B Comp W-C Capsule 1 CAP PO (08:22)
[2020-10-03] MEDS: 0.9% Saline Lock 10 ML Syringe IV ×2 (10:30→20:12)
--- NOTE | 2020-10-03 14:01 | PN.HOSP_ITS ---
Subjective Subjective She is feeling much better than when she came in, she was little bit short of breath with ambulation but otherwise breathes normally while at rest. She is little bit nervous about going home today and would prefer to go home tomorrow if possible. Objective Data Objective Data Vital Signs: Vital Signs Temp Pulse Resp BP Pulse Ox 98.1 F 62 15 149/77 H 88 10/03/20 08:15 10/03/20 12:00 10/03/20 08:15 10/03/20 08:15 10/03/20 10:29 Oxygen Flow Rate (L/min) 1 Oxygen Delivery Method Nasal Cannula Weight: 265 lb 6.985 oz Body Mass Index (BMI) 42.8 Intake & Output: Intake and Output for Last 24 Hours 10/02/20 10/03/20 10/04/20 03:59 03:59 03:59 Intake Total 1300 / 1300 2646 / 2646 830 / 830 Balance 1300 / 1300 2646 / 2646 830 / 830 Lab / Micro Data Result Diagrams: 10/03/20 05:10 10/03/20 05:10 Labs: Laboratory Results - last 24 hr 10/03/20 10/03/20 05:10 05:10 WBC 9.7 RBC 4.62 Hgb 13.3 Hct 40.4 MCV 87.4 MCH 28.8 MCHC 32.9 RDW Std Deviation 42.2 RDW Coeff of Saida 13.2 Plt Count 195 MPV 11.5 Immature Gran % (Auto) 0.500 Neut % (Auto) 82.5 H Lymph % (Auto) 10.9 L Person % (Auto) 6.0 Eos % (Auto) 0.0 Baso % (Auto) 0.1 Absolute Neuts (auto) 8.0 H Absolute Lymphs (auto) 1.06 Nucleated RBC % 0 Sodium 140 Potassium 4.1 Chloride 105 Carbon Dioxide 30.0 Anion Gap 5 BUN 19 H Creatinine 0.88 Estim Creat Clear Calc 63.64 Est GFR (MDRD) Af Amer 84 Est GFR (MDRD) Non-Af 70 BUN/Creatinine Ratio 21.6 H Glucose 153 H Calcium 8.5 Total Bilirubin 0.20 AST 28 ALT 42 Alkaline Phosphatase 72 Total Protein 6.7 Albumin 2.7 L Globulin 4.0 Albumin/Globulin Ratio 0.7 L Micro: Microbiology 10/02/20 08:10 Urine, Random Legionella Antigen - Final 10/02/20 08:10 Urine, Random Streptococcus pneumoniae Antigen (M - Final Physical Exam Const alert, oriented x3 and no apparent distress HEENT normocephalic and moist oral mucous membranes Eyes PERRL, EOMs intact bilaterally and conjunctivae normal Neck supple and no JVD Resp normal respiratory effort, no retractions, no use of accessory muscles and clear to auscultation bilaterally Auscultation: Negative for crackles, rales, rhonchi or wheezes Cardio regular rate, regular rhythm, S1 normal heart sound, S2 normal heart sound and no murmurs GI soft to palpation, non-tender and non-distended; Negative for hepatosplenomegaly Extremity no clubbing, cyanosis or edema Skin no rashes or lesions noted Neuro no focal motor deficits and no sensory deficits noted Psych affect normal Assessment & Plan Assessment/Plan (1) Pneumonia due to COVID-19 virus: (2) Hypoxemia: (3) Anxiety: PLAN: 1. Acute hypoxic respiratory failure secondary to pneumonia due to COVID-19 virus -Admit to COVID-19 cohort unit, [facility] telemetry status -Covid isolation precautions ordered -Oxygen per protocol -Became symptomatic September 25, tested positive at now clinic September 27 -Continue with Decadron and remdesivir, a few members in her family had Covid and her father recently from a PE as a complication to Covid. -She did not obtain the Covid vaccine because she does not trust it 2. Anxiety -Stable -Continue with her home anxiety medications 3. HTN -Blood pressure is stable -We will continue with losartan 4. GERD -Stable -Continue omeprazole DVT: Lovenox
--- NOTE | 2020-10-03 14:10 | VDLE_ITS ---
Reason For Study: elevated D-Dimer RIGHT LEFT GSV is normal. GSV is normal. FV is compressible, spontaneous, phasic, FV is compressible, spontaneous, phasic, competent and demonstrates normal competent and demonstrates normal augmentation. augmentation. POP V is compressible, spontaneous, phasic, POP V is compressible, spontaneous, phasic, competent and demonstrates normal competent and demonstrates normal augmentation. augmentation. T/P Trunk is compressible. T/P Trunk is compressible. PTV is compressible. PTV is compressible. RT PerV is compressible. LT PerV is compressible. Procedure This is a venous duplex using B-mode, color flow and spectral Doppler. Exam performed portable in ICU/CCU. The exam was diagnostic. Limited views in the groin due to pt body habitus. A preliminary report was called and/or faxed to the pt's RN. VL/Venous Duplex US - Enzo Extrem Interpretation Summary No evidence for acute deep venous thrombosis bilateral lower extremities with p atent and compressible bilateral great saphenous veins. Exam suggested limited imaging of the groins bilaterally due to body habitus Ordering Physician: Johnny Oglesby Performed By: Sunny Sanders RVT
[2020-10-04] VITALS (8 sets, daily range): BP systolic 155–168; BP diastolic 54–70; PULSE 44–74; RESP 17–20; TEMP 36.6–36.7; O2SAT 87–95
[2020-10-04] MEDS: 0.9% Saline Lock 10 ML Syringe IV (03:18)
[2020-10-04 03:37] LABS: Absolute Lymphocyte Count 1.24 X10^3/uL (0.83-4.51); Absolute Neutrophil Count 10.1 X10^3/uL (2.0-7.7); Hematocrit 38.3 % (37-47); Hemoglobin 12.5 g/dL (12.0-15.0); Lymphocyte # 1.24 X10^3/ul (0.83-4.51); Lymphocyte % 10.1 % (19-41); Mean Corp Hgb Conc 32.6 g/dL (32-36); Mean Corpuscular Volume 88.9 fL (81-99); Mean Platelet Vol. 11.3 fl (6.2-12.0); Monocyte# 0.89 X10^3/uL; Monocyte% 7.2 % (0-10); NRBC Flagged by Analyzer 0 % (0-5); Neutrophil # 10.11 X10^3/uL (2.7-7.7); Neutrophil % 82.1 % (47-70); Platelet Count 227 K/mm3 (150-450); RBC Distribution Width CV 13.3 % (11.6-14.6); RBC Distribution Width SD 43.7 fl (35.1-43.9); Red Blood Count 4.31 M/mm3 (4.2-5.4); White Blood Count 12.3 K/mm3 (4.4-11.0)
[2020-10-04 03:55] LABS: ALB/GLOB Ratio 0.7 RATIO (0.9-2.4); AST(SGOT) 18 U/L (15-37); Alanine Aminotransfer ALT/SGPT 33 U/L (13-56); Albumin, Serum 2.6 g/dL (3.2-5.0); Alkaline Phosphatase 65 U/L (45-117); Anion Gap 3 (5-15); BUN 18 mg/dL (7-18); BUN/Creat Ratio 21.5 RATIO (10-20); Chloride 104 mmol/L (98-107); Creatinine, Serum 0.84 mg/dL (0.55-1.02); EST Glomerular Filtration Rate 74 mL/min (>60); Est Glom Filt Rate - Afr Amer 89 mL/min (>60); Estimated Creatinine Clearance 66.67 ml/min; Globulin 3.5 g/dL (2.2-4.2); Glucose 155 mg/dL (74-106); Potassium 3.9 mmol/L (3.5-5.1); Protein, Total 6.1 g/dL (6.4-8.2); Sodium Level 138 mmol/L (136-145)
--- NOTE | 2020-10-04 08:58 | PCM.DC ---
Discharge Instructions Diet Discharge Diet: No restrictions Activity Discharge Activity: Return to Normal Activity Dressing / Incision Call your doctor if you observe: Fever of 101 or Higher, Shortness of breath, Dizziness, Fainting spells, Swelling in the ankles, Chest pain and Increased palpitations (irregular heartbeat) Follow Up Care Test Results: Test results from this visit will be discussed in further detail at your follow-up appointment, if applicable. Discharge Plan Admission Admit Date/Time: 10/01/20 23:17 Attending Provider: Jhonny Oglesby Primary Care Provider: Williams Pierson Instructions Patient Instructions: Coronavirus Disease 2019 (COVID-19): Overview, Coronavirus Disease 2019 (COVID-19): Caring for Yourself or Others, COVID-19 and the Flu: What's the Difference? Additional Instructions / Restrictions: Remaining quarantined for another 10 days. Discharge Orders/Prescriptions Prescriptions: New dexamethasone 2 mg tablet 6 mg PO DAILY 7 Days Qty: 21 RF: 0 cefdinir 300 mg capsule 300 mg PO BID Qty: 4 RF: 0 Eliquis 2.5 mg tablet 2.5 mg PO BID Qty: 30 RF: 0 Continued losartan 25 mg tablet 25 mg PO DAILY RF: 0 citalopram 10 mg tablet 10 mg PO DAILY RF: 0 Caltrate + D3 Plus Minerals 300 mg-800 unit -25 mg-0.5 mg tablet 1 tab PO DAILY RF: 0 ascorbic acid-elderberry fruit [Airborne (elderberry)] 100-50 mg tablet,chewable PO RF: 0 esomeprazole magnesium [Nexium] 20 MG capsule 40 mg PO DAILY RF: 0 Cetirizine Hcl [Zyrtec] 10 MG tablet 10 mg PO PRN PRN (Reason: Allergies) RF: 0 multivitamin [Daily Multiple] 1 EACH tablet 1 ea PO DAILY RF: 0 ascorbic acid (vitamin C) [Vitamin C] 500 MG tablet 500 mg PO DAILY RF: 0 vitamin B complex-folic acid [Super B Maxi Complex] 0.4 MG tablet 0.4 mg PO DAILY RF: 0 calcium carbonate-vitamin D3 [Caltrate with Vitamin D3] 1 TAB tablet 1 tab PO DAILY@0800 RF: 0 elderberry fruit 200 mg Capsule 200 mg PO DAILY RF: 0 Referrals / Follow Up: Williams Pierson DO [Primary Care Provider] - Within 2 Weeks Disposition Disposition (needs filled in before D/C Order can be placed): Home, self care
[2020-10-04] MEDS: Pantoprazole Sodium 40 MG Tablet PO (09:27)
[2020-10-04] MEDS: Calcium Carb/Vitamin D 1 TABLET Tablet PO (09:27)
[2020-10-04] MEDS: Multivitamins,Therapeutic Tablet 1 TABLET PO (09:27)
[2020-10-04] MEDS: dexAMETHasone 4 MG Tablet 6 MG PO (09:27)
[2020-10-04] MEDS: Losartan Potassium 25 MG Tablet PO (09:28)
[2020-10-04] MEDS: Citalopram 10 MG Tablet PO (09:28)
[2020-10-04] MEDS: Enoxaparin 40 MG/0.4 ML Syringe SC (09:28)
[2020-10-04] MEDS: Vitamin B Comp W-C Capsule 1 CAP PO (09:28)
[2020-10-04] MEDS: Ascorbic Acid 500 MG Tablet PO (09:29)
--- NOTE | 2020-10-04 12:17 | CASEMGMT ---
RN CM NOTE: Pt is being discharged home today and qualifies for home O2 @ 2 L/M continuously. Script obtained from Dr Oglesby and faxed to [facility] [place] at this time along w/demographics/insurance info. Call placed to pt and she was made aware that portable tank would be delivered to her room to go home on and then made aware she is to call [facility] [place] when she arrives home for delivery of concentrator and further instructions. She voices understanding. She denies having any other discharge needs. Leeann FLORESN RN CM
--- NOTE | 2020-10-04 13:06 | PCM.DC.SUM ---
Providers Date of Admission: 10/01/20 Primary Care Physician: Dr. Williams Pierson, DO Reason For Visit: COVID 19 PNA Diagnosis Discharge Diagnosis (1) Pneumonia due to COVID-19 virus: Status: Acute Code(s): U07.1 - COVID-19; J12.82 - Pneumonia due to coronavirus disease 2019 (2) Hypoxemia: Status: Acute Code(s): R09.02 - Hypoxemia (3) Anxiety: Status: Acute Code(s): F41.9 - Anxiety disorder, unspecified Medications at Discharge Home Medications Cetirizine Hcl [Zyrtec] 10 mg PO PRN PRN 04/30/15 ascorbic acid (vitamin C) [Vitamin C] 500 mg PO DAILY 04/30/15 calcium carbonate-vitamin D3 [Caltrate with Vitamin D3] 1 tab PO DAILY@0800 04/30/15 esomeprazole magnesium [Nexium] 40 mg PO DAILY 04/30/15 multivitamin [Daily Multiple] 1 ea PO DAILY 04/30/15 vitamin B complex-folic acid [Super B Maxi Complex] 0.4 mg PO DAILY 04/30/15 ascorbic acid 100 mg-elderberry fruit 50 mg chewable tablet tab PO 09/27/20 calcium carb 300 mg-D3 800 unit-mag ox 25 mg-accident investigator 0.5 mg-edelmira-Zn tablet 1 tab PO DAILY 09/27/20 citalopram 10 mg tablet 10 mg PO DAILY 09/27/20 losartan 25 mg tablet 25 mg PO DAILY 09/27/20 elderberry fruit 200 mg PO DAILY 10/01/20 apixaban [Eliquis] 2.5 mg PO BID #30 tab 10/04/20 cefdinir 300 mg PO BID #4 cap 10/04/20 dexamethasone 6 mg PO DAILY 7 Days #21 tab 10/04/20 Hospital Course Operations None Procedures None Summary of Care Provided Minutes Spent on Discharge: 40 Hospital Course: Per HPI: YULISSA AUSTIN, is a 60 F who presents with worsening Covid symptoms. Patient states that she began to be symptomatic last Wednesday and was tested last Wednesday where she was positive for Covid. Patient reports fever of 104, sore throat, rhinorrhea, cough, mild shortness of breath, loose stools and headache. Patient states that she has been nauseous as well she feels due to the amount of Tylenol and anti-inflammatory she has been taking for her fever. Patient is extremely anxious and panicked due to the recent passing of her father from a pulmonary embolism as a result of COVID-19. Patient was offered and denied need for anxiety medication or sedative. Hospital Course: 1. Acute hypoxic respiratory failure secondary to COVID-19 [id number] female presents to the hospital with shortness of breath and worsening Covid symptoms. She became symptomatic 10 days ago and tested +8 days ago. Her father and mother both had Covid and her father recently passed after having a PE after his Covid. She did have an elevated D-dimer and a CT of the chest was negative and venous Dopplers were also negative for blood clot. She is on minimal oxygen and states that she feels much better and is ready to sleep in her own bed she will need oxygen to go home for both at rest and with activity. She did receive 3 out of 5 doses of remdesivir and will need 7 more days of Decadron. She completed 3 days of azithromycin and will have 2 more days cefdinir secondary to the possibility of a bacterial infection as well given the lobar appearance of the pneumonia as well as a slightly elevated procalcitonin. Also plan for Eliquis 2.5 mg twice daily for 2weeks given her elevated D-dimer and the anecdotal evidence of blood clots after Covid infection. I discussed with the plan for discharge today and she expressed understanding of the risks and benefits of going home and would like to go home today. She understand that she will need to remain in quarantine for another 10 days. 2. Anxiety, hypertension, GERD are all chronic medical conditions which complicate her care. Her home medications were continued where appropriate Physical Exam Const alert, oriented x3 and no apparent distress HEENT normocephalic and moist oral mucous membranes Eyes PERRL, EOMs intact bilaterally and conjunctivae normal Neck supple and no JVD Resp normal respiratory effort, no retractions, no use of accessory muscles and clear to auscultation bilaterally Auscultation: Negative for crackles, rales, rhonchi or wheezes Cardio regular rate, regular rhythm, S1 normal heart sound, S2 normal heart sound and no murmurs GI soft to palpation, non-tender and non-distended; Negative for hepatosplenomegaly Extremity no clubbing, cyanosis or edema Skin no rashes or lesions noted Neuro no focal motor deficits and no sensory deficits noted Psych affect normal Weight / BMI Weight Weight: 265 lb 6.985 oz Body Mass Index (BMI) 42.8 ABG / Lab / Microbiology Data Result Diagrams: 10/04/20 03:25 10/04/20 03:25 Laboratory: Laboratory Results - last 24 hr 10/04/20 10/04/20 03:25 03:25 WBC 12.3 H RBC 4.31 Hgb 12.5 Hct 38.3 MCV 88.9 MCH 29.0 MCHC 32.6 RDW Std Deviation 43.7 RDW Coeff of Saida 13.3 Plt Count 227 MPV 11.3 Immature Gran % (Auto) 0.600 Neut % (Auto) 82.1 H Lymph % (Auto) 10.1 L Brooks % (Auto) 7.2 Eos % (Auto) 0.0 Baso % (Auto) 0.0 Absolute Neuts (auto) 10.1 H Absolute Lymphs (auto) 1.24 Nucleated RBC % 0 Sodium 138 Potassium 3.9 Chloride 104 Carbon Dioxide 31.0 Anion Gap 3 L BUN 18 Creatinine 0.84 Estim Creat Clear Calc 66.67 Est GFR (MDRD) Af Amer 89 Est GFR (MDRD) Non-Af 74 BUN/Creatinine Ratio 21.5 H Glucose 155 H Calcium 8.0 L Total Bilirubin 0.20 AST 18 ALT 33 Alkaline Phosphatase 65 Total Protein 6.1 L Albumin 2.6 L Globulin 3.5 Albumin/Globulin Ratio 0.7 L Microbiology: Microbiology 10/02/20 01:25 Blood Culture - Preliminary Blood Culture (Wb) - Left Hand No growth in 48 hours. 10/02/20 01:25 Blood Culture - Preliminary Blood Culture (Wb) - Right Hand No growth in 48 hours. Microbiology 10/02/20 01:25 Blood Culture (Wb) - Left Hand Blood Culture - Preliminary No growth in 48 hours. 10/02/20 01:25 Blood Culture (Wb) - Right Hand Blood Culture - Preliminary No growth in 48 hours. 10/02/20 08:10 Urine, Random Legionella Antigen - Final 10/02/20 08:10 Urine, Random Streptococcus pneumoniae Antigen (M - Final Radiography Diagnostic Testing: Radiology Impression Venous Doppler Study 10/03/20 14:10 Interpretation Summary No evidence for acute deep venous thrombosis bilateral lower extremities with patent and compressible bilateral great saphenous veins. Exam suggested limited imaging of the groins bilaterally due to body habitus Ordering Physician: Jhonny Oglesby Performed By: Sunny Sanders RVT D/C Instructions Discharge Diet: No restrictions Call your doctor if you observe: Fever of 101 or Higher, Shortness of breath, Dizziness, Fainting spells, Swelling in the ankles, Chest pain and Increased palpitations (irregular heartbeat) Meaningful Use Info Meaningful Use Diagnoses (Choose all that apply): None applicable Discharge Plan Admission Admit Date/Time: 10/01/20 23:17 Attending Provider: Jhonny Oglesby Primary Care Provider: Williams Pierson Instructions Patient Instructions: Coronavirus Disease 2019 (COVID-19): Overview, Coronavirus Disease 2019 (COVID-19): Caring for Yourself or Others, COVID-19 and the Flu: What's the Difference? Additional Instructions / Restrictions: Remaining quarantined for another 10 days. Discharge Orders/Prescriptions Prescriptions: New dexamethasone 2 mg tablet 6 mg PO DAILY 7 Days Qty: 21 RF: 0 cefdinir 300 mg capsule 300 mg PO BID Qty: 4 RF: 0 Eliquis 2.5 mg tablet 2.5 mg PO BID Qty: 30 RF: 0 Continued losartan 25 mg tablet 25 mg PO DAILY RF: 0 citalopram 10 mg tablet 10 mg PO DAILY RF: 0 Caltrate + D3 Plus Minerals 300 mg-800 unit -25 mg-0.5 mg tablet 1 tab PO DAILY RF: 0 ascorbic acid-elderberry fruit [Airborne (elderberry)] 100-50 mg tablet,chewable PO RF: 0 esomeprazole magnesium [Nexium] 20 MG capsule 40 mg PO DAILY RF: 0 Cetirizine Hcl [Zyrtec] 10 MG tablet 10 mg PO PRN PRN (Reason: Allergies) RF: 0 multivitamin [Daily Multiple] 1 EACH tablet 1 ea PO DAILY RF: 0 ascorbic acid (vitamin C) [Vitamin C] 500 MG tablet 500 mg PO DAILY RF: 0 vitamin B complex-folic acid [Super B Maxi Complex] 0.4 MG tablet 0.4 mg PO DAILY RF: 0 calcium carbonate-vitamin D3 [Caltrate with Vitamin D3] 1 TAB tablet 1 tab PO DAILY@0800 RF: 0 elderberry fruit 200 mg Capsule 200 mg PO DAILY RF: 0 Referrals / Follow Up: Williams Pierson DO [Primary Care Provider] - Within 2 Weeks Disposition Disposition (needs filled in before D/C Order can be placed): Home, self care Charges/Coding Visit Charges Inpatient E&M: 07249 Disch Hosp
== END 2020-10-04 14:35 | disposition home or self-care (01) | DRG 177 ==
LOC: ED 22:43 → ICU 10-02 01:48
PROVIDERS: Nurse Practitioner Family; Admitting Provider Hospitalist; Emergency Provider Emergency Medicine; PCP Preventive Medicine Occupational Medicine; Visit Provider Family Medicine
DX: U07.1 COVID-19 (principal); J12.82 Pneumonia due to coronavirus disease 2019; J96.01 Acute respiratory failure with hypoxia; Z68.41 Body mass index [BMI] 40.0-44.9, adult; R79.89 Other specified abnormal findings of blood chemistry; I10 Essential (primary) hypertension; R11.2 Nausea with vomiting, unspecified; K21.9 Gastro-esophageal reflux disease without esophagitis; F32.9 Major depressive disorder, single episode, unspecified; F41.9 Anxiety disorder, unspecified; E66.01 Morbid (severe) obesity due to excess calories; Z79.01 Long term (current) use of anticoagulants; Z79.899 Other long term (current) drug therapy
CPT/HCPCS: 71045; 71275; 80053; 84145; 84484; 85025; 85379; 87040; 87449; 93005; 93970; 97162; 97166; 99251; 99285; J7030; J7050; Q9967; A4216; G0463; J0696; J2405

== ENCOUNTER → 2023-05-17 | Outpatient (CLI) | payer OTHER, SELFPAY ==
--- NOTE | 2023-05-17 13:45 | CT_ITS ---
CT RIGHT LOWER EXTREMITY WITH 3-D IMAGING CLINICAL INDICATION: PAIN IN RIGHT KNEE TECHNIQUE: Axial CT images of the right lower extremity (including right hip, right knee, and right ankle) was performed without IV contrast material. Coronal and sagittal reformats were provided. RADIATION DOSAGE (If Supplied By Facility): CTDIvol = ( 19.07 ) mGy, DLP = ( 1381.51 ) mGycm COMPARISON: No relevant prior comparison study available. FINDINGS: Bones: Normal right hip. There is severe degenerative arthrosis of the medial femorotibial compartment of the right knee with joint space narrowing, marginal osteophyte formation, and subchondral sclerosis/cyst formation. There is moderate osteoarthritic spur formation of the patellofemoral and lateral femorotibial compartment of the right knee. There is a tiny posterior calcaneal tuberosity spur at the distal insertion of the Achilles tendon. There is mild degenerative arthrosis at the navicular-cuneiform joints. Osseous structures are intact without evidence of fracture or dislocation. No lytic or blastic osseous masses. Soft Tissues: There is a small knee joint effusion. The deep soft tissue structures are unremarkable. The superficial soft tissues are unremarkable without evidence of edema, hematoma, or foreign body. CT/Extremity Lower without Contra IMPRESSION: Tricompartment degenerative arthrosis of the right knee, most severe in the medial femorotibial compartment. Small joint effusion. Electronically Signed: Augustin Mccall MD at 14:48 EST ,
[2023-05-17 16:00] LABS: Magnesium 2.2 mg/dL (1.6-2.6)
[2023-05-17 17:07] LABS: Hemoglobin A1c 5.8 % (3.8-5.6)
== END | disposition home or self-care (01) ==
PROVIDERS: Anesthesiology; PCP Preventive Medicine Occupational Medicine; Referring Provider Orthopaedic Surgery; Visit Provider Orthopaedic Surgery
DX: Z01.818 Encounter for other preprocedural examination (principal); M25.561 Pain in right knee; Z96.652 Presence of left artificial knee joint; M17.11 Unilateral primary osteoarthritis, right knee; M25.461 Effusion, right knee
CPT/HCPCS: 36415; 73700; 83036; 83735; 87081

== ENCOUNTER 2023-06-07 05:43 | Day surgery (SDC) | payer OTHER, SELFPAY ==
[2023-06-07] VITALS (15 sets, daily range): BP systolic 108–144; BP diastolic 55–70; PULSE 63–77; RESP 16–18; TEMP 36.2–36.9; O2SAT 88–97; BMI 43.7
[2023-06-07] MEDS: Lactated Ringers 1,000 ML 15 ML IV (06:25)
[2023-06-07] MEDS: Magnesium 1 GM over 15 mins IV (06:26)
[2023-06-07] MEDS: Acetaminophen 500 MG Tablet 1000 MG PO ×2 (06:26→14:39)
[2023-06-07] MEDS: Gabapentin 600 MG Tablet PO (06:27)
[2023-06-07 06:45] LABS: Bedside Glucose 101 mg/dL (74-106)
[2023-06-07] MEDS: Cefazolin 2 GM in 0.9% Normal Saline (100mL Bag) 100 ML IV (08:01)
--- NOTE | 2023-06-07 08:15 | KNEE_PTH ---
PATHOLOGY RESULTS PATIENT: YULISSA AUSTIN LOC: [facility] U#:[id number] AGE/SX: 62/F ROOM: RE06/07/[address]: Dr. Jaspreet Serra DO : 1960 BED: DIS: 06/07/2023 SPEC #: [id number] RECD: 06/07/23 11:29 STATUS: KENDRA REAshly #: [id number] PHILIP: 06/07/23 08:[address]: Jaspreet Serra DEPT: SURGICAL PATHOLOGY RECD BY: Myesha Carrillo ENTERED: 06/07/23 11:30 SP TYPE: TOTAL KNEE OTHR DR: Dr. Williams Pierson DO Tissues: Knee, NOS Procedures: Decalcification bone/plaque Surgery Specimen Level IV HEADER OPERATION: Robotic assisted right total knee arthroplasty PRE-OP DIAGNOSIS: Osteoarthritis right knee TISSUE SUBMITTED: Right knee bone and tissue MICROSCOPIC DIAGNOSIS Bone and soft tissue, right knee, total knee replacement/resection: Pieces of bone with degenerative osteoarthritic changes. Fibroadipose tissue, fibroconnective tissue and reactive synovial tissue. HAILEY:hanna 06/10/2023 MICROSCOPIC DESCRIPTION Slides are reviewed. GROSS DESCRIPTION Received is one container designated bone and soft tissue right knee. The specimen consists of multiple fragments of daniel-yellow bone measuring in aggregate 9.0 x 10.0 x 3.0 cm. Also in the specimen container are multiple fragments of yellow-white soft tissue measuring in aggregate 8.0 x 9.0 x 2.5 cm. A number of bony fragments contain articular surfaces consistent with tibial plateau and femoral condyle and displaying prominent osteophyte formation, eburnation and bone erosion. Public Health Representative sections are submitted in two cassettes as follows: 1 - soft tissue, 2 - bone after decalcification. / HAILEY:hanna 06/07/2023 TC:5 CPT: 66464, 47960
[2023-06-07] MEDS: TXA 1000mg in NS100 100ml (IVPB at Incision) 660 MG IV (08:20)
--- NOTE | 2023-06-07 09:26 | PCM.OPRPT ---
Report of Operation Date of Procedure: 06/07/23 Pre-Operative Diagnosis: OA Right knee Post-Operative Diagnosis: same Surgery/Procedure Performed:: Right TKR Description of Surgical Findings:: Report of Operation Date of Procedure: 06/07/23 Preoperative Diagnosis: [right ] knee primary osteoarthritis Postoperative Diagnosis: [right ] knee primary osteoarthritis Operation: Robotic Assisted Knee Total Arthroplasty, [ right ] knee Surgeon: Dr Jaspreet Serra DO Aviation Maintenance Technician: Larry Damian PA-C Anesthesia: spinal Anesthesiologist: Otoniel Smith M.D. Findings: Stable knee with good patella tracking Specimen(s): Bony cuts Complications: No intraoperative complications Estimated Blood Loss: 50 cc IV Fluids: 1000 cc crystalloid Implants Used: 1. Kaylee Triathlon press-fit CR size 3 femur 2. Kaylee Triathlon size 3 tibia 3. 32 mm patella 4. 9 mm CS polyethylene Brief History Operative Indications: [ (62 y/o female) ] with history of [ right ] knee osteoarthrosis with radiographic findings with loss of joint space, osteophyte formation and subchondral sclerosis. Failed conservative measures as mentioned in the H&P. Discussion of total knee arthroplasty as well as risk and benefits were discussed with the patient including but not limited to blood loss, DVTs, PEs, neurovascular damage, general risk of anesthesia including loss of life, and stiffness or instability were also discussed with the patient. Patient demonstrated understanding and was able to sign informed consent. Procedure: On the date of procedure, patient's [right ] lower extremity was marked in the preoperative area. The patient was then taken back to the operating room where that patient was placed on the table in the supine position. All bony prominences were identified and well-padded. Anesthesia assumed control of the C-spine and airway throughout the remainder of the procedure. A tourniquet was placed on the [ ] upper thigh and the leg was prepped in a sterile fashion. The surgeon then scrubbed at this time. Upon reentering the room, the [right ] lower extremity was draped in a standard orthopedic fashion. A timeout was then called and everyone agreed upon the side, the site, the procedure to be performed, patient's identity and antibiotics given. Esmarch bandage was used to exsanguinate the extremity and the tourniquet was placed up to 250 mmHg with the knee in flexion. A midline skin incision was made and a sharp dissection was taken down through skin, subcutaneous tissue and fat. The standard medial parapatellar incision was made and the patella was subluxed laterally. An appropriate deep MCL release was done and the fat pad was resected. Our attention was then directed to the patella. The patella was everted and a flat resection was made. The knee was then flexed up and 2 femoral pins were placed inside the incision and 2 tibial pins were placed outside the incision in the medial tibia bicortically. Once this was completed, the 2 checkpoints in the femur and tibia were placed. Knee was then flexed up and the bony landmarks were registered. Once the was completed, the knee taken through range of motion and manually stressed allowing us to plan for an appropriate tibial cut. The robotic arm was brought into the field sterilely and checkpoint and saw were registered. Based on the patient's deformity, the tibial cut was made in [2 degrees varus ]. At this time, the tensioner was then placed in the joint and ligament tension was checked at 90 degrees and full extension. Based on the patient's ligamentous tension, appropriate adjustments were made to the operative plan and ligament releases were done. Once we were happy with our operative plan with balanced flexion and extension gaps, our attention was directed to the femur. The robot was brought into the field sterilely and registered. Posterior condylar cuts, anterior chamfer cuts and anterior cuts were appropriately made for a [size 3 ] femur. When these were completed, the saws were switched out in the distal femoral and posterior chamfer cuts were made. Protecting the soft tissue throughout this time. A [size 3 ] base plate was selected. The knee was flexed to 90 degrees and soft tissues and posterior osteophytes were removed from the joint. 40 cc of the periarticular injection was injected into the posterior medial corner of the joint. The appropriate trials were then placed on the femur and tibia. A trial polyethylene was trialed to ensure proper balancing and stability of the knee. The appropriate tibial internal rotation was then marked with a bovie. Our attention was then directed to the patella. The lug holes were drilled and the patella trial was placed. Patellar tracking was checked and deemed appropriate. Once we were happy, lug holes were drilled for the femur and trial components were removed. The tibia was subluxed and pinned into place and the keel was punched and drilled appropriately. Final components were verified and opened. The wound was copiously irrigated with normal saline. The components were impacted into place with the tibia, femur and finally the patella. The trial poly component was placed and the knee was placed in full extension. The tracking, alignment and balance were verified and a [9 mm CS ] polyethylene component was placed. Once the final components were placed an Irrisept lavage was performed and the wound was copiously irrigated with normal saline solution and the periarticular injection was given. the wound was closed in a layer-lambert fashion using #1 vicryl interrupted sutures for the arthrotomy, 2-0 interrupted vicryl suture for the subcuticular layer and bandar for final skin closure. A sterile compressive dressing was then placed. The patient was then awakened from anesthesia, transferred to the rsouth roxana and transferred to the PACU for recovery. My physician internet marketing assistant was a vital part of this case. He was important in appropriate retraction during the case, and protection of soft tissues during bony cuts. His intimate knowledge of the case and my steps aided in safe and expedient completion of the procedure as well as appropriate position of the leg during the case. He was also vital in assisting with closure under my direct supervision. Due to the complexity of this case, robotic arm was used to assist in the surgery to improve accuracy and clinical outcomes. Post-op Plan: DVT ppx; ASA 81 mg BID, thigh high compression stockings Follow up: in office in 2 weeks for wound check PT: to start POD #0 at hospital, outpatient PT should be arranged. Preoperative antibiotic: Ancef 3 grams IV Jaspreet Serra DO Surgeon: Jaspreet Serra in service education teacher: Larry Damian Type of Anesthesia: Spinal Anesthesiologist: Otoniel Smith Estimated Blood Loss (mL): 50 cc Fluids Replaced: 1000 cc crystalloid Admit VTE Documentation VTE Present on Admission: No VTE Mechan Device Prophylaxis: SCD's and Thigh High WILY Hose VTE Pharm Prophylaxis ordered?: Yes
[2023-06-07] MEDS: TXA 1000mg in NS100 100ml (IVPB at Closure) 660 MG IV (09:27)
[2023-06-07] MEDS: JPS (Morphine 10mg/ml) OPERA.SITE (09:28)
--- NOTE | 2023-06-07 10:20 | RAD_ITS ---
STUDY: X-RAY - RIGHT KNEE REASON FOR EXAM: Female, 62 years old. Post op -- in PACU TECHNIQUE: 2 view(s) of the knee. COMPARISON: None. FINDINGS: Normal visualized distal femur. Normal visualized proximal tibia and fibula. Normal proximal tibiofibular articulation. The patient is status post total knee replacement. There is good alignment. Postoperative soft tissue changes. RAD/Knee 1 or 2 Views IMPRESSION: Status post total knee replacement. There is good alignment. Postoperative soft tissue changes. Electronically Signed: Noah Tesfaye MD at 11:58 EST ,
[2023-06-07] MEDS: Lactated Ringers 1,000 ML 999 ML IV (10:35)
== END 2023-06-07 17:20 | disposition home or self-care (01) ==
LOC: SDC 05:43 → AC 05:44
PROVIDERS: PCP Preventive Medicine Occupational Medicine; Referring Provider Orthopaedic Surgery; Visit Provider Orthopaedic Surgery
PROC: 0SRC0JZ Replacement of Right Knee Joint with Synthetic Substitute, Open Approach (ICD-10-PCS; CPT 27447; principal; 2023-06-07 07:45)
DX: M17.11 Unilateral primary osteoarthritis, right knee (principal); E66.01 Morbid (severe) obesity due to excess calories; Z68.42 Body mass index [BMI] 45.0-49.9, adult; Z86.16 Personal history of COVID-19; I10 Essential (primary) hypertension; Z86.79 Personal history of other diseases of the circulatory system; Z96.652 Presence of left artificial knee joint; Z98.51 Tubal ligation status
CPT/HCPCS: 27447; 01402; 73560; 82962; 88305; 88311; 93005; 97162; C1776; J7120; J2405; J3475

== ENCOUNTER → 2023-06-14 | Outpatient (CLI) | payer OTHER, SELFPAY ==
--- NOTE | 2023-06-14 15:01 | VDLE_ITS ---
Reason For Study: RLE Swelling RIGHT LEFT GSV is normal. CFV is compressible, spontaneous, phasic, CFV is compressible, spontaneous, phasic, competent, and demonstrates normal competent and demonstrates normal augmentation. augmentation. FV is compressible, spontaneous, phasic, competent and demonstrates normal augmentation. POP V is compressible, spontaneous, phasic, competent and demonstrates normal augmentation. T/P Trunk is compressible. PTV is compressible. RT PerV is compressible. Unable to visualize proximal portion of calf vessels due to swelling and edema. Procedure This is a venous duplex using B-mode, color flow and spectral Doppler. Exam performed in department. The study was technically difficult. Limited views were obtained. A preliminary report was called and/or faxed to [facility]. VL/Venous Duplex US, Unilateral Interpretation Summary Deep veins of the right lower extremity are patent and compressible segmentally . There is no evidence of right lower extremity deep vein thrombosis. The right great sapheno us vein appears patent and compressible segmentally. Limited study below knee Ordering Physician: Jaspreet Serra Referring Physician: Williams Pierson Performed By: Jared Palacios RVT
== END | disposition home or self-care (01) ==
LOC: CVS 14:59
PROVIDERS: PCP Preventive Medicine Occupational Medicine; Referring Provider Orthopaedic Surgery; Visit Provider Orthopaedic Surgery
DX: R22.41 Localized swelling, mass and lump, right lower limb (principal)
CPT/HCPCS: 93971

== ENCOUNTER → 2023-07-05 | Outpatient (CLI) | payer OTHER, SELFPAY ==
--- NOTE | 2023-07-05 13:03 | VDLE_ITS ---
Reason For Study: Right post op pain RIGHT GSV is normal. CFV is compressible, spontaneous, phasic, competent and demonstrates normal augmentation. FV is compressible, spontaneous, phasic, competent and demonstrates normal augmentation. POP V is compressible, spontaneous, phasic, competent and demonstrates normal augmentation. T/P Trunk is compressible. PTV is compressible. RT PerV is compressible. Procedure This is a venous duplex using B-mode, color flow and spectral Doppler. Exam performed in department. A preliminary report was called and/or faxed to Dr. Serra. VL/Venous Duplex US, Unilateral Interpretation Summary Deep veins of the right lower extremity are patent and compressible segmentally . There is no evidence of right lower extremity deep vein thrombosis. The right great sapheno us vein appears patent and compressible segmentally. Ordering Physician: Jaspreet Serra Referring Physician: Williams Pierson Performed By: Virginia Beard RVT
== END | disposition home or self-care (01) ==
PROVIDERS: PCP Preventive Medicine Occupational Medicine; Referring Provider Orthopaedic Surgery; Visit Provider Orthopaedic Surgery
DX: G89.18 Other acute postprocedural pain (principal)
CPT/HCPCS: 93971